=== PATIENT | female | born 1990 | race Caucasian/White ===

== ENCOUNTER 2017-10-26 01:54 | Observation (INO) | payer OTHER, MEDICAID, SELFPAY ==
[2017-10-26 01:58] VITALS: BP 119/75; PULSE 94; RESP 18; TEMP 36.6; O2SAT 100
[2017-10-26] MEDS: SODIUM CHLORIDE 0.9% 1,000 ML 150 ML IV ×2 (03:02→12:38)
--- NOTE | 2017-10-26 03:20 | DI.US.S_ITS ---
PROCEDURE: US PELVIC COMPLETE INDICATIONS: 27 year-old woman with severe right pelvic pain. TECHNIQUE: Real-time scanning was performed of the pelvic organs, with image documentation. Additional endovaginal scanning was necessary due to incomplete visualization of the adnexal and endometrial structures by transabdominal scanning. COMPARISON: None. FINDINGS: Transabdominal scanning: Limited scanning through the kidneys shows no hydronephrosis. No pathologic free abdominal or pelvic fluid. Endovaginal scanning: Uterus: Uterus is anteverted measuring 9.5 x 2.6 x 5.6 cm. The endometrium measures 5.9 mm in combined thickness. There is an IUD in the uterine cavity. Ovaries: Right ovary measures 4.8 x 3.8 x 2.8 cm. There is a complex cystic mass in the right ovary measuring 2.2 x 1.8 x 1.9 cm. A 8.5 x 5.1 x 1.9 cm irregular echogenic mass in the right adnexa demonstrates no internal vascularity. There is a moderate amount of free fluid in the cul-de-sac with low-level echo, suspicious for blood product. The left ovaries not visualized. IMPRESSION: 1. Complex, echogenic mass without vascularity in the right adnexa measuring 8.5 x 5.1 x 1.9 cm, most likely a hematoma. Differential diagnosis includes ruptured hemorrhagic cyst, ectopic , tubo-ovarian abscess and less likely ovarian neoplasm. Recommend clinical correlation and followup. 2. Moderate amount of complex free fluid in cul-de-sac. 3. No visualization of the left ovary. 4. IUD in uterus. No significant discrepancy with the night warehouse manager radiology preliminary report. Dictated by: Feliciano Aguilar M.D. on 10/26/2017 at 8:16 Approved by: Feliciano Aguilar M.D. on 10/26/2017 at 8:23
[2017-10-26 03:21] LABS: Add Manual Diff / Slide Review NO; Basophils Percent Auto 0.6 % (0-2); Hematocrit 36.8 % (36-46); Hemoglobin 12.9 g/dL (12.0-16.0); Lymphocytes Percent Auto 17.5 % (25-40); Mean Corpuscular Hemoglobin 31.7 PG (26-34); Mean Corpuscular Volume 90.3 fL (80-100); Monocytes Percent Auto 6.4 % (3-14); Neutrophils Absolute Auto 6500 /uL (3000-5900); Neutrophils Percent Auto 72.5 % (50-75); Platelet Count 220 X10^3/uL (150-400); Red Blood Cell Count 4.07 X10^6/uL (4.0-5.2); Red Cell Distribution Width 12.4 % (11.6-14.8); White Blood Cell Count 8.9 X10^3/uL (4.5-11.0)
[2017-10-26 03:29] LABS: Alanine Aminotransferase 43 IU/L (9-52); Albumin 4.2 g/dL (3.5-5.0); Albumin Globulin Ratio 1.4 (1.0-2.8); Alkaline Phosphatase 53 U/L (38-126); Aspartate Aminotransferase 32 IU/L (14-36); Bilirubin Total 0.3 mg/dL (0.2-1.3); Blood Urea Nitrogen 12 mg/dL (7-17); Calcium 9.1 mg/dL (8.4-10.2); Carbon Dioxide 27 mmol/L (22-32); Chloride 105 mmol/L (98-107); Estimated Glomerular Filt Rate > 60.0 mL/min (>60); Globulin 2.9 g/dL (1.7-4.1); Glucose 92 mg/dL (70-100); HEMOLYSIS 46 (0-50); Lipase 62 U/L (23-300); Potassium 3.8 mmol/L (3.4-5.1); Sodium 142 mmol/L (137-145); Total Protein 7.1 g/dL (6.3-8.2)
--- NOTE | 2017-10-26 04:14 | DI.CT.S_ITS ---
PROCEDURE: CT ABDOMEN PELVIS W CON INDICATIONS: severe right lower quadrant pain TECHNIQUE: After the administration of intravenous contrast, 5 mm thick sections acquired from the diaphragm to the symphysis. 5 mm coronal and sagittal reformats were acquired. For radiation dose reduction, the following was used: automated exposure control, adjustment of mA and/or kV according to patient size. COMPARISON: [facility], , US PELVIC COMPLETE, 10/26/2017, 3:43. FINDINGS: Image quality: Excellent. ABDOMEN: Lung bases: Lung bases are clear. Heart size is normal. Solid organs: Liver is normal in size and enhancement. Gallbladder is normal. Biliary system is non dilated. Pancreas enhances normally. Spleen is normal in size and enhancement. No adrenal nodules. Kidneys demonstrate normal size and enhancement, without hydronephrosis. Peritoneum and bowel: Bowel loops demonstrate normal wall thickness and caliber. The appendix is normal. No free air. There is a small amount of free of fluid in the right colic gutter. Nodes and vessels: No retroperitoneal or mesenteric adenopathy by size criteria. Aorta and inferior vena cava are normal in size. Miscellaneous: No ventral hernias. PELVIS: Genitourinary: Bladder wall thickness is normal. Uterus is prominent with an IUD. There is a complex mass in the right adnexa measuring 4.9 x 3.4 cm. There is moderate amount of free fluid in pelvis. Miscellaneous: No inguinal hernias or adenopathy. Bones: No suspicious bony lesions. No vertebral body compression fractures. IMPRESSION: 1. Normal appendix. 2. A complex mass in the right adnexa measuring 4.9 x 3.4 cm. There is a moderate amount of free fluid. Differential diagnoses include hematoma from ruptured hemorrhagic ovarian cyst, ectopic , and tubo-ovarian abscess. Ovarian neoplasm is felt less likely. 3. An IUD in the uterus. No significant discrepancy with the security shift supervisor radiology preliminary report. Dictated by: Feliciano Aguilar M.D. on 10/26/2017 at 7:52 Approved by: Feliciano Aguilar M.D. on 10/26/2017 at 8:00
--- NOTE | 2017-10-26 04:29 | ED_ITS ---
HPI - Abdominal Pain General Chief Complaint: Abdominal Pain Stated Complaint: abdominal pain x 6 hours Time Seen by Provider: 10/26/17 02:00 Source: patient Mode of arrival: ambulatory Limitations: no limitations History of Present Illness HPI narrative: 19-year-old female with history of IUD placement presents with a chief complaint of gradually worsening right lower quadrant pain over the past few days. She denies any vaginal bleeding or discharge. She is not dizzy nor weak or lightheaded. She denies any fever or chills. She has had no runny nose , sore throat or cough. She states it is much worse when she moves and improves with rest MD complaint: abdominal pain Onset (ago): day(s) Pain Consistency: constant Location: RLQ Severity: moderate Quality: cramping Radiation: none Migration to: no migration Relieving factors: rest Exacerbating factors: movement Associated symptoms: denies other symptoms Related Data Patient : No Home Medications Medication Instructions Recorded Confirmed ACETAMINOPHEN (TYLENOL) 650 mg PO PRN #0 03/05/06 VITAMIN C - 0 PO PRN #0 03/05/06 (VITAMIN C) Allergies Allergy/AdvReac Type Severity Reaction Status Date / Time No Known Drug Allergies Allergy Verified 10/26/17 01:58 Review of Systems Review of Systems All systems reviewed & are unremarkable except as noted in HPI and below Constitutional Denies chills, Denies fever(s), Denies lethargy and Denies weakness Eyes Denies change in vision, Denies eye discharge, Denies irritation and Denies loss of vision ENT Ears, Nose, Mouth, and Throat: Denies change in voice, Denies neck pain and Denies sore throat Cardiovascular Denies chest pain, Denies irregular heart rhythm, Denies lightheadedness, Denies palpitations, Denies dyspnea, Denies dyspnea on exertion and Denies orthopnea Respiratory Denies cough, Denies dyspnea, Denies dyspnea on exertion and Denies wheezing Gastrointestinal Gastrointestinal: Reports abdominal pain, Denies change in bowel habits, Denies diarrhea, Denies nausea and Denies vomiting Genitourinary Denies hematuria, Denies flank pain, Denies urinary incontinence and Denies urinary urgency Musculoskeletal Denies neck pain Integumentary/Breasts Denies pruritus, Denies erythema, Denies rash and Denies wounds Neurologic Denies confusion, Denies loss of vision and Denies weakness Psychiatric Denies anxiety, Denies confusion, Denies depression, Denies homicidal ideation and Denies suicidal ideation Endocrine Denies palpitations Hematologic/Lymphatic Denies easy bruising Allergic/Immunologic Denies wheezing [facility], [facility] Social History Smoking Status: Never smoker Exam Initial Vital Signs Initial Vital Signs: Vital Signs Temperature 97.8 F 10/26/17 01:58 Pulse Rate 94 H 10/26/17 01:58 Respiratory Rate 18 10/26/17 01:58 Blood Pressure 119/75 10/26/17 01:58 Pulse Oximetry 100 10/26/17 01:58 Const General: cooperative and well developed Nutritional Appearance: well nourished Orientation: alert, awake, oriented x3 and not confused HENMT Head: normocephalic and atraumatic Ears: external ears normal and TM's normal bilaterally Nose: external nose normal and No nasal discharge Face and sinus: sinuses nontender, face symmetric, no sinus tenderness and No dry mucous membranes Mouth: oral mucosae normal and moist mucous membranes Teeth and gingiva: dentition normal Throat: tonsils normal and uvula midline Eyes General: appearance normal, both eyes and all related structures Eyelids: eyelids normal Conjunctivae: conjunctivae normal Sclera: sclerae normal Pupils: PERRL EOM: EOM intact bilaterally Neck Neck: normal visual inspection, trachea midline, No lymphadenopathy, No midline deformity and No JVD Lymphatic: No lymphedema Chest Chest: normal inspection of the chest Resp Effort & Inspection: normal respiratory effort, able to speak in complete sentences, no respiratory distress and no use of accessory muscles Auscultation: clear to auscultation bilaterally, no rales, no rhonchi and no wheezes Cardio Rate: regular rate Rhythm: regular rhythm Heart Sounds: no click, no gallops, no murmurs and no rubs Pulses: normal peripheral pulses GI Inspection: non-distended Palpation: soft, no hepatosplenomegaly, No guarding, No pulsatile mass and tender (RLQ pain to palp with local peritonitis) Auscultation: normal bowel sounds Back/Spine/Pelvis Back: No CVA tenderness Cervical Spine: cervical ROM normal and No pain with cervical ROM Thoracic/Lumbar Spine: thoracic and lumbar spine normal to inspection Skin General: no rashes or lesions noted, No jaundice and No petechiae Neuro General: alert, oriented x3, gait normal and no focal motor deficits Speech: speech normal Extrem General: full ROM, no clubbing, cyanosis or edema, no pedal edema and no calf tenderness Psych Appearance: well kempt Mental Status: mental status grossly normal Attitude: cooperative Thought Content: normal and suicidality Judgment: judgment good Course Decision to Admit Date: 10/26/17 Decision to Admit time: 05:08 Orders Ordered: ED Orders 10/26/17 02:30 HCG Quantitative Stat 10/26/17 03:10 Complete Blood Count AUTO DIFF Stat Comprehensive Metabolic Panel Stat Lipase Stat 10/26/17 03:20 US pelvic complete Stat 10/26/17 04:14 CT abdomen pelvis w con Stat 10/26/17 05:24 Type and Screen Stat Sodium Chloride (Normal Saline 0.9%) 1,000 mls @ 150 mls/hr IV CONT OPHELIA Last Admin: 10/26/17 03:02 Dose: 150 mls/hr Reevaluation(s) Reevaluation #1: Patient developing increasing pain and tenderness on exam. She is now requesting Dilaudid. Consultations Consultation #1: Upon receipt of ultrasound a call placed to Dr. Velez who was on-call for OB. We agree that this calls most appropriately handled by Dr. Valencia, the backup assistant account manager. When he calls back we share the opinion that the patient is most appropriately kept in the hospital with pain control, trending of hematocrit, NPO status Vital Signs - 8 hr 10/26/17 01:58 Temperature 97.8 F Pulse Rate 94 H Respiratory Rate 18 Blood Pressure 119/75 Pulse Oximetry 100 MDM - Abdominal Pain Differential Diagnosis Differential diagnosis: Likely abdominal pain Lab Data Result diagrams: 10/26/17 03:10 10/26/17 03:10 Lab Results 10/26/17 10/26/17 10/26/17 Range/Units 02:30 03:10 03:10 WBC 8.9 (4.5-11.0) X10^3/uL RBC 4.07 (4.0-5.2) X10^6/uL Hgb 12.9 (12.0-16.0) g/dL Hct 36.8 (36-46) % MCV 90.3 (80-100) fL MCH 31.7 (26-34) PG MCHC 35.0 (30-36) % RDW 12.4 (11.6-14.8) % Plt Count 220 (150-400) X10^3/uL Neut % (Auto) 72.5 (50-75) % Lymph % (Auto) 17.5 L (25-40) % [place] % (Auto) 6.4 (3-14) % Eos % (Auto) 3.0 (2-4) % Baso % (Auto) 0.6 (0-2) % Neut # (Auto) 6500 H (9512-2703) /uL Sodium 142 (137-145) mmol/L Potassium 3.8 (3.4-5.1) mmol/L Chloride 105 (98-107) mmol/L Carbon Dioxide 27 (22-32) mmol/L BUN 12 (7-17) mg/dL Creatinine 0.60 (0.52-1.04) mg/dL Estimated GFR > 60.0 (>60) mL/min BUN/Creatinine Ratio 20.0 (6-22) Glucose 92 (70-100) mg/dL Calcium 9.1 (8.4-10.2) mg/dL Total Bilirubin 0.3 (0.2-1.3) mg/dL AST 32 (14-36) IU/L ALT 43 (9-52) IU/L Alkaline Phosphatase 53 (38-126) U/L Total Protein 7.1 (6.3-8.2) g/dL Albumin 4.2 (3.5-5.0) g/dL Globulin 2.9 (1.7-4.1) g/dL Albumin/Globulin Ratio 1.4 (1.0-2.8) Lipase 62 (23-300) U/L HCG, Quant < 2.39 mIU/mL Point of care testing: Point of Care Testing Test Results Negative Urine Dip Bedside Urine Glucose Negative Bedside Urine Bilirubin - Negative Bedside Urine Ketone - Negative Urine Specific Sells 1.020 Bedside Urine Occult Blood - Negative Bedside Urine pH 6.5 Bedside Urine Protein - Negative Bedside Urine Urobilinogen - Negative Bedside Urine Nitrite - Negative Bedside Urine Leukocytes - Negative Esterase Imaging Data US - abdomen: Radiologist's impression: Complex cystic structure in the right ovary likely complex or hemorrhagic cyst. Large complex right adnexal mass adjacent to the ovary most likely hematoma or blood clot with moderate complex free fluid likely hemoperitoneum. Constellation of findings most likely ruptured or hemorrhagic ovarian cyst, the differential diagnosis also includes ruptured ectopic. IUD in place. Hematoma measures 8.5 x 1.[address] scan - abdomen: Radiologist's impression: Complex mass in the right adnexa likely hematoma or blood clot adjacent to the right ovary with a small right ovarian cystic structure and moderate hemoperitoneum. Findings correlate to the ultrasound findings Discharge Plan Departure Patient Disposition: Admitted As Inpatient Clinical Impression: Corpus luteum cyst hemorrhage
[2017-10-26 04:58] LABS: HCG Quantitative /Beta subunit < 2.39 mIU/mL
[2017-10-26] MEDS: HYDROMORPHONE 1 MG INJ IV (05:49)
[2017-10-26] MEDS: ONDANSETRON 4 MG/2 ML INJ IV ×3 (05:49→16:55)
[2017-10-26 06:08] VITALS: BP 113/67; PULSE 79; RESP 18; O2SAT 98
[2017-10-26 06:25] VITALS: BP 107/62; PULSE 72; RESP 16; TEMP 36.7; O2SAT 100
[2017-10-26 06:36] VITALS: BMI 21.9
[2017-10-26 07:26] LABS: Hematocrit 34.8 % (36-46); Hemoglobin 11.8 g/dL (12.0-16.0)
[2017-10-26] MEDS: HYDROMORPHONE PCA 6 MG/30 ML PCA.VIAL IV ×2 (07:48→13:51)
[2017-10-26 07:55] VITALS: BP 115/68; PULSE 62; RESP 16; TEMP 36.8; O2SAT 93
--- NOTE | 2017-10-26 07:55 | PC.ADMIT ---
[id number] Admission Note:Pt arrived to room 228 from the ER via a wheelchair, pt able to transfer herself to the bed indep. Pt is a/o x3. GUM COOK set up per order for pain, pt having 4/10 abdominal pain mostly to the right side that radiates to med abdomen. IVF infusing. Belongings with pt. Pt oriented to room and call light and instructed to call for assist when she need to get OOB. The patient,Natalee Jorge,27 y/o, was given written information regarding hospital policies, unit procedures and contact persons. Patient's smoking status: Current some day smoker. Vital Signs - 8 hr 10/26/17 01:58 10/26/17 06:08 10/26/17 06:25 Temperature 97.8 F 98.1 F Pulse Rate 94 H 79 72 Respiratory Rate 18 18 16 Blood Pressure 119/75 113/67 107/62 Pulse Oximetry 100 98 100
--- NOTE | 2017-10-26 07:55 | PM.GYNHP.1 ---
History of Present Illness Narrative: Natalee Jorge is a 27 year old female 0 para 0 who presents with crampy lower abdominal pain and an acute onset of right lower and upper quadrant pain. Patient has had IUD for four years without difficulty. She presented to the emergency room this history and a CT scan ultrasound was obtained. I have reviewed these and a show a right corpus luteum cyst and blood in the abdomen compatible with a blood clot. The patient's symptoms are compatible with this. The patient was hemodynamically stable with hematocrit of 36 a normal white count and normal laboratory studies. She was admitted to observe for continued bleeding. [facility] Medical History IUD (intrauterine device) in place (Acute) UTI (urinary tract infection) (Acute) Social History household members: family Smoking Status: Current some day smoker alcohol intake: current Meds Home Medications Medication Instructions Recorded Confirmed Type ACETAMINOPHEN (TYLENOL) 650 mg PO PRN #0 03/05/06 10/26/17 History Allergies Allergy/AdvReac Type Severity Reaction Status Date / Time No Known Drug Allergies Allergy Verified 10/26/17 01:58 Exam Vital Signs (past 8 hours): - 10/26/17 01:58 10/26/17 06:08 10/26/17 06:25 Temperature 97.8 F 98.1 F Pulse Rate 94 H 79 72 Respiratory Rate 18 18 16 Blood Pressure 119/75 113/67 107/62 Pulse Oximetry 100 98 100 Oxygen Delivery Method Room Air Const General: cooperative and healthy appearing [facility] Head: normal to inspection Ears: hearing grossly normal bilaterally Nose: external nose normal Face and sinus: normal facial exam Mouth: oral mucosae normal, lip normal, tongue normal and moist mucous membranes Teeth and gingiva: dentition normal Throat: posterior oropharynx normal Eyes General: appearance normal, both eyes and all related structures Neck Neck: normal visual inspection and full ROM Chest Chest: normal inspection of the chest and normal palpation of entire chest wall Breast inspection: normal inspection of the breasts and normal inspection of the axillae Breast Palpation: normal palpation of the breasts and normal palpation of the axillae Resp Effort & Inspection: normal respiratory effort Auscultation: clear to auscultation bilaterally Cardio Palpation: normal PMI Rate: regular rate Rhythm: regular rhythm Heart Sounds: S1 normal and S2 normal GI Inspection: distended Palpation: soft, no hepatosplenomegaly and guarding Percussion: normal to percussion Auscultation: normal bowel sounds Other: Patient with mild distention of the abdomen but no fluid wave. Bowel sounds are excellent Back/Spine/Pelvis Thoracic/Lumbar Spine: thoracic and lumbar spine normal to inspection Skin General: no rashes or lesions noted Neuro General: alert, oriented x3, tone normal and moves all extremities Cognition: normal cognition Speech: speech normal Gait: normal gait Motor: muscle tone normal throughout Sensory Exam: no sensory deficits noted Extrem General: normal to inspection and normal exam except as noted Psych Appearance: grossly normal and well kempt Mental Status: mental status grossly normal Speech and Movement: speech and movement normal Objective Labs Result Diagrams: 10/26/17 06:50 10/26/17 03:10 Labs: Laboratory Results - last 24 hr 10/26/17 10/26/17 10/26/17 02:30 03:10 03:10 WBC 8.9 RBC 4.07 Hgb 12.9 Hct 36.8 MCV 90.3 MCH 31.7 MCHC 35.0 RDW 12.4 Plt Count 220 Neut % (Auto) 72.5 Lymph % (Auto) 17.5 L [place] % (Auto) 6.4 Eos % (Auto) 3.0 Baso % (Auto) 0.6 Neut # (Auto) 6500 H Sodium 142 Potassium 3.8 Chloride 105 Carbon Dioxide 27 BUN 12 Creatinine 0.60 Estimated GFR > 60.0 BUN/Creatinine Ratio 20.0 Glucose 92 Calcium 9.1 Total Bilirubin 0.3 AST 32 ALT 43 Alkaline Phosphatase 53 Total Protein 7.1 Albumin 4.2 Globulin 2.9 Albumin/Globulin Ratio 1.4 Lipase 62 HCG, Quant < 2.39 Blood Type Antibody Screen 10/26/17 10/26/17 05:30 06:50 WBC RBC Hgb 11.8 L Hct 34.8 L MCV MCH MCHC RDW Plt Count Neut % (Auto) Lymph % (Auto) [place] % (Auto) Eos % (Auto) Baso % (Auto) Neut # (Auto) Sodium Potassium Chloride Carbon Dioxide BUN Creatinine Estimated GFR BUN/Creatinine Ratio Glucose Calcium Total Bilirubin AST ALT Alkaline Phosphatase Total Protein Albumin Globulin Albumin/Globulin Ratio Lipase HCG, Quant Blood Type O Positive Antibody Screen Negative Assessment & Plan (1) Cyst, corpus, luteum ruptured: Problem details: Patient with ruptured corpus luteum cyst and intra-abdominal bleeding which appears to have ceased. Plan is for careful observation and continue the patient NPO status Pain relief be provided with a MANUFACTURING RECRUITER Current visit: Yes Status: Acute Plan: Assessment/Plan Narrative: Please see above Quality VTE Deep Vein Thrombosis/Pulmonary Embolism Present on Admission: No
--- NOTE | 2017-10-26 09:23 | CM.DANOTE ---
Discharge Planning/Care Management DCP: assessment: ryan received, EMR reviewed and met with pt this morning. Introduced self and role. Pt is a 27 year old female who admitted early this mornin to care of RECYCLING SPECIALIST Dr. Jack. Admitted for observation of ruptured cyst with bleeding/now appeared to have stopped, in setting of IUD use x 4 years. Pt states she has a good talk with Dr. Jack this morning and knows he will be back later today...will follow prn for any needs. Expect home when stable for same. CM Discharge Assessment Start: 10/26/17 09:12 Freq: Status: Active Protocol: Document 10/26/17 09:20 ITV (Rec: 10/26/17 09:22 ITV [id number]) Discharge Planning Assessment History Provided By Patient Medical Record Prior Living Arrangements House Independent with ADL's Yes Is patient alert and oriented? Yes Barriers to Discharge No Comment pt expects to d/c home when medically stable. Dr. Jack will return later today to see her again. Discharge Plan Home Transportation Arrangement mom will pick her up/mom lives in [place], pt lives in [place] Updated in Patient Room with Yes name and ext. # of Director Of Retention Review Status In Process Next Review Type Continued Stay Review
[2017-10-26 11:35] VITALS: BP 107/66; PULSE 58; RESP 15; TEMP 36.5; O2SAT 94
[2017-10-26 13:14] LABS: Hematocrit 32.5 % (36-46)
[2017-10-26] MEDS: OXYCODONE IR 10 MG TABLET PO ×2 (14:16→18:48)
[2017-10-26 15:50] VITALS: BP 117/62; PULSE 74; RESP 16; TEMP 36.7; O2SAT 99
--- NOTE | 2017-10-26 17:40 | P.PN_ITS ---
Subjective Date Patient Seen: 10/26/17 Time Patient Seen: 17:37 Interval history: Patient is a 27-year-old admitted because a corpus luteum cyst director. This was documented well on ultrasound. Serial hematocrits remained stable and the patient was admitted and ambulated. She was discharged home for follow-up in four weeks. Post admission instructions were given with regards to diet bathing and exercise. Exam Vital Signs (past 8 hours): - 10/26/17 11:35 10/26/17 15:50 Temperature 97.7 F 98.0 F Pulse Rate 58 L 74 Respiratory Rate 15 16 Blood Pressure 107/66 117/62 Pulse Oximetry 94 99 Oxygen Delivery Method Room Air Oxygen Flow Rate 0 Narrative Exam Narrative: Examination is confined to the abdomen. Abdomen is less distended in the past and less tender. Good bowel sounds are present. Objective Labs Result Diagrams: 10/26/17 13:00 10/26/17 03:10 Labs: Laboratory Results - last 24 hr 10/26/17 10/26/17 10/26/17 02:30 03:10 03:10 WBC 8.9 RBC 4.07 Hgb 12.9 Hct 36.8 MCV 90.3 MCH 31.7 MCHC 35.0 RDW 12.4 Plt Count 220 Neut % (Auto) 72.5 Lymph % (Auto) 17.5 L [place] % (Auto) 6.4 Eos % (Auto) 3.0 Baso % (Auto) 0.6 Neut # (Auto) 6500 H Sodium 142 Potassium 3.8 Chloride 105 Carbon Dioxide 27 BUN 12 Creatinine 0.60 Estimated GFR > 60.0 BUN/Creatinine Ratio 20.0 Glucose 92 Calcium 9.1 Total Bilirubin 0.3 AST 32 ALT 43 Alkaline Phosphatase 53 Total Protein 7.1 Albumin 4.2 Globulin 2.9 Albumin/Globulin Ratio 1.4 Lipase 62 HCG, Quant < 2.39 Blood Type Antibody Screen 10/26/17 10/26/17 10/26/17 05:30 06:50 13:00 WBC RBC Hgb 11.8 L Hct 34.8 L 32.5 L MCV MCH MCHC RDW Plt Count Neut % (Auto) Lymph % (Auto) [place] % (Auto) Eos % (Auto) Baso % (Auto) Neut # (Auto) Sodium Potassium Chloride Carbon Dioxide BUN Creatinine Estimated GFR BUN/Creatinine Ratio Glucose Calcium Total Bilirubin AST ALT Alkaline Phosphatase Total Protein Albumin Globulin Albumin/Globulin Ratio Lipase HCG, Quant Blood Type O Positive Antibody Screen Negative Assessment & Plan (1) Cyst, corpus, luteum ruptured: Problem details: Patient with ruptured corpus luteum cyst and intra-abdominal bleeding which appears to have ceased. Plan is for careful observation and continue the patient NPO status Pain relief be provided with a SHOT POLISHER AND INSPECTOR Current visit: Yes Status: Acute (2) Corpus luteum cyst hemorrhage: Problem details: Patient observed and followed with no evidence of continued bleeding Current visit: Yes Status: Acute Plan: Assessment/Plan Narrative: Discharge to home Oxycodone Zofran Follow-up one week Quality VTE Deep Vein Thrombosis/Pulmonary Embolism Present on Admission: No
== END 2017-10-26 19:20 | disposition home or self-care (01) ==
LOC: ED 05:41 → AC 09:46
PROVIDERS: Emergency Provider Emergency Medicine
DX: N83.11 Corpus luteum cyst of right ovary (principal); R10.31 Right lower quadrant pain; F17.210 Nicotine dependence, cigarettes, uncomplicated
CPT/HCPCS: 36415; 36591; 74177; 76830; 76856; 80053; 81003; 81025; 83690; 84702; 85014; 85018; 85025; 86850; 86900; 86901; 96374; 96375; 96376; 99283; 99285; G0378; J1170; J2405; Q9967

== ENCOUNTER 2017-10-30 11:50 | Emergency (ER) | payer OTHER, MEDICAID, SELFPAY ==
[2017-10-30] VITALS (7 sets, daily range): BP systolic 107–120; BP diastolic 57–73; PULSE 66–84; RESP 11–18; TEMP 36.3–37.1; O2SAT 99–100
--- NOTE | 2017-10-30 12:04 | ED.ABDPAIN ---
HPI - Abdominal Pain <RIMA Joiner - Last Filed: 10/30/17 21:36> General Chief Complaint: Chest Pain Stated Complaint: ABDOMINAL AND CHEST PAIN Time Seen by Provider: 10/30/17 12:01 Source: patient Mode of arrival: ambulatory Limitations: no limitations History of Present Illness HPI narrative: 27-year-old female history of a ruptured hemorrhagic ovarian cyst and part-time smoker here for complaint of abdominal pain and chest pain. She was recently admitted due to hemorrhagic cyst for pain control and was discharged 3 days ago. She reports she has continued abdominal pain to the pelvic region. She also complains of having right upper quadrant pain with pain to the chest area on deep inspiration. She denies any vaginal discharge or bleeding. She reports that the pain to the pelvic region is the same as when she was discharged. She does report increased pain into the right upper quadrant and chest pain that started 2 days ago. No nausea or vomiting. Last bowel movement was earlier today. She is currently using oxycodone for pain and states that she did have a bowel movement earlier today however she had use laxatives due to the pain medication. She denies any relievers of the abdominal pain. She does state she has positive p.o. intake. She denies any urinary symptoms. No flank pain. She currently has IUD in place. Related Data Previous Rx's Medication Instructions Recorded ondansetron HCl (PF) 4 mg IV Q4HR PRN #20 ml 10/26/17 oxycodone 10 mg PO Q4H PRN #30 tab 10/26/17 Allergies Allergy/AdvReac Type Severity Reaction Status Date / Time No Known Drug Allergies Allergy Verified 10/26/17 01:58 Review of Systems <RIMA Joiner - Last Filed: 10/30/17 21:36> Constitutional Denies chills, Denies fatigue, Denies fever(s), Denies lethargy and Denies weakness Eyes Denies change in vision, Denies eye discharge, Denies irritation and Denies loss of vision ENT Ears, Nose, Mouth, and Throat: Denies change in voice, Denies neck pain and Denies sore throat Cardiovascular Reports chest pain, Denies dyspnea and Denies dyspnea on exertion Respiratory Denies cough, Denies dyspnea, Denies dyspnea on exertion and Denies wheezing Gastrointestinal Gastrointestinal: Reports abdominal pain, Denies change in bowel habits, Denies diarrhea, Denies nausea and Denies vomiting Genitourinary Reports pelvic pain Musculoskeletal Denies neck pain Integumentary/Breasts Denies pruritus, Denies erythema, Denies rash and Denies wounds Neurologic Denies confusion, Denies loss of vision and Denies weakness Psychiatric Denies anxiety, Denies confusion, Denies depression, Denies homicidal ideation and Denies suicidal ideation Endocrine Denies fatigue and Denies flushing Hematologic/Lymphatic Denies easy bruising Allergic/Immunologic Denies wheezing Exam <RIMA Joiner - Last Filed: 10/30/17 21:36> Initial Vital Signs Initial Vital Signs: Vital Signs Temperature 97.3 F L 10/30/17 12:00 Pulse Rate 84 10/30/17 12:00 Respiratory Rate 18 10/30/17 12:00 Blood Pressure 120/70 10/30/17 12:00 Pulse Oximetry 100 10/30/17 12:00 Const General: cooperative and well developed Nutritional Appearance: well nourished Orientation: alert, awake, oriented x3 and not confused [facility] Mouth: oral mucosae normal, oropharynx normal and moist mucous membranes Eyes Conjunctivae: conjunctivae normal Sclera: sclerae normal Pupils: PERRL EOM: EOM intact bilaterally Chest Chest: normal inspection of the chest Resp Effort & Inspection: normal respiratory effort, able to speak in complete sentences, no respiratory distress and no use of accessory muscles Auscultation: clear to auscultation bilaterally, no rales, no rhonchi and no wheezes Cardio Rate: regular rate Rhythm: regular rhythm Heart Sounds: no click, no gallops, no murmurs and no rubs GI Inspection: non-distended Palpation: soft, no hepatosplenomegaly, No guarding, No pulsatile mass and tender (Generalized abdominal tenderness however greater to the right lower quadrant and right upper quadrant) Auscultation: normal bowel sounds Skin General: no rashes or lesions noted, No jaundice and No petechiae Neuro General: alert, oriented x3, gait normal and no focal motor deficits Speech: speech normal <[place] DO - Last Filed: 10/31/17 06:46> Initial Vital Signs Initial Vital Signs: Vital Signs Temperature 97.3 F L 10/30/17 12:00 Pulse Rate 84 10/30/17 12:00 Respiratory Rate 18 10/30/17 12:00 Blood Pressure 120/70 10/30/17 12:00 Pulse Oximetry 100 10/30/17 12:00 Scores <RIMA Joiner - Last Filed: 10/30/17 21:36> PERC Score Age greater than or equal to 50 years: No Heart rate greater than or equal to 100 bpm: No Room Air O2 Sat less than 95%: No Unilateral leg swelling: No Recent trauma or surgery: No Hemoptysis: No Prior PE or DVT: No Hormone Use: Yes Total PERC Score: 1 Course <RIMA Joiner - Last Filed: 10/30/17 21:36> Orders Ordered: Discontinued Medications Hydromorphone HCl (Dilaudid) 1 mg IV Q15M OPHELIA Stop: 10/30/17 12:46 Last Admin: 10/30/17 15:40 Dose: 1 mg Admin: 10/30/17 13:27 Dose: 1 mg Sodium Chloride (Normal Saline 0.9%) 1,000 mls @ 1,000 mls/hr IV BOLUS ONE Stop: 10/30/17 13:24 Last Infusion: 10/30/17 15:05 Dose: 0 mls/hr Admin: 10/30/17 13:27 Dose: 1,000 mls/hr Ondansetron HCl (Zofran) 4 mg IV NOW ONE Stop: 10/30/17 12:26 Last Admin: 10/30/17 13:27 Dose: 4 mg Vital Signs - 8 hr 10/30/17 14:00 10/30/17 15:00 10/30/17 16:00 Temperature Pulse Rate 69 76 66 Respiratory Rate 17 13 16 Blood Pressure Blood Pressure [Right Arm] 118/57 L 120/66 117/64 Pulse Oximetry 100 100 99 10/30/17 16:29 Temperature 98.3 F Pulse Rate 71 Respiratory Rate 15 Blood Pressure 117/64 Blood Pressure [Right Arm] Pulse Oximetry 99 <Sea Comer DO - Last Filed: 10/31/17 06:46> Orders Ordered: Discontinued Medications Hydromorphone HCl (Dilaudid) 1 mg IV Q15M OPHELIA Stop: 10/30/17 12:46 Last Admin: 10/30/17 15:40 Dose: 1 mg Admin: 10/30/17 13:27 Dose: 1 mg Sodium Chloride (Normal Saline 0.9%) 1,000 mls @ 1,000 mls/hr IV BOLUS ONE Stop: 10/30/17 13:24 Last Infusion: 10/30/17 15:05 Dose: 0 mls/hr Admin: 10/30/17 13:27 Dose: 1,000 mls/hr Ondansetron HCl (Zofran) 4 mg IV NOW ONE Stop: 10/30/17 12:26 Last Admin: 10/30/17 13:27 Dose: 4 mg Vital Signs - 8 hr 10/30/17 14:00 10/30/17 15:00 10/30/17 16:00 Temperature Pulse Rate 69 76 66 Respiratory Rate 17 13 16 Blood Pressure Blood Pressure [Right Arm] 118/57 L 120/66 117/64 Pulse Oximetry 100 100 99 10/30/17 16:29 Temperature 98.3 F Pulse Rate 71 Respiratory Rate 15 Blood Pressure 117/64 Blood Pressure [Right Arm] Pulse Oximetry 99 MDM - Abdominal Pain <RIMA Joiner - Last Filed: 10/30/17 21:36> Differential Diagnosis Differential diagnosis: Likely abdominal pain and constipation Lab Data Result diagrams: 10/30/17 13:00 10/30/17 13:00 Lab Results 10/30/17 10/30/17 10/30/17 Range/Units 13:00 13:00 13:00 WBC 4.2 L (4.5-11.0) X10^3/uL RBC 3.84 L (4.0-5.2) X10^6/uL Hgb 12.1 (12.0-16.0) g/dL Hct 34.7 L (36-46) % MCV 90.2 (80-100) fL MCH 31.6 (26-34) PG MCHC 35.0 (30-36) % RDW 12.4 (11.6-14.8) % Plt Count 181 (150-400) X10^3/uL Neut % (Auto) Not Reportable Lymph % (Auto) Not Reportable [place] % (Auto) Not Reportable Eos % (Auto) Not Reportable Baso % (Auto) Not Reportable Total Counted 100 Seg Neutrophils % 66.0 (38-70) % Lymphocytes % (Manual) 18.0 L (25-45) % Monocytes % (Manual) 16.0 H (2-11) % Eosinophils % (Manual) 8.0 H (2-4) % Basophils % (Manual) 2.0 H (0-1) % Neutrophils # (Manual) 2772 L (4680-3993) /uL RBC Morphology Normal morphology D-Dimer 645 H (<230) ng/mL Sodium 145 (137-145) mmol/L Potassium 4.0 (3.4-5.1) mmol/L Chloride 103 (98-107) mmol/L Carbon Dioxide 32 (22-32) mmol/L BUN 8 (7-17) mg/dL Creatinine 0.70 (0.52-1.04) mg/dL Estimated GFR > 60.0 (>60) mL/min BUN/Creatinine Ratio 11.4 (6-22) Glucose 96 (70-100) mg/dL Calcium 9.5 (8.4-10.2) mg/dL Total Bilirubin 0.8 (0.2-1.3) mg/dL AST 39 H (14-36) IU/L ALT 34 (9-52) IU/L Alkaline Phosphatase 46 (38-126) U/L Total Creatine Kinase 48 (30-135) U/L Troponin I < 0.012 (0.01-0.034) ng/mL Total Protein 7.8 (6.3-8.2) g/dL Albumin 4.5 (3.5-5.0) g/dL Globulin 3.3 (1.7-4.1) g/dL Albumin/Globulin Ratio 1.4 (1.0-2.8) Lipase 36 (23-300) U/L Point of care testing: Point of Care Testing Test Results Negative Urine Dip Bedside Urine Glucose Negative Bedside Urine Bilirubin - Negative Bedside Urine Ketone - Negative Urine Specific [place] 1.010 Bedside Urine Occult Blood - Negative Bedside Urine pH 7.0 Bedside Urine Protein - Negative Bedside Urine Urobilinogen - Negative Bedside Urine Nitrite - Negative Bedside Urine Leukocytes - Negative Esterase MDM Narrative Medical decision making narrative: Ultrasound of the abdomen and pelvis was obtained and shows area of free fluid to a area of the right ovary consistent with a hemorrhagic cyst. Ultrasound also shows some free fluid to the left upper quadrant area and believes due to the hemorrhagic cyst. Acute abdominal series was obtained and shows mild constipation no other acute findings. D-dimer was obtained and was elevated at 645 CT PE protocol of the chest was obtained was negative for any acute findings. EKG can cardiac enzymes were obtained were unremarkable. CBC was unremarkable. Chem panel was unremarkable. Lipase was negative. Urine POC was negative for and urinary tract infection. Patient has follow-up appointment with warble saw operator this week. He is currently prescribed pain management regimen as needed for any discomfort. Plenty of fluids. Stool softeners as directed to help with constipation. For any worsening symptoms return to the emergency room. <Sea [place]er, DO - Last Filed: 10/31/17 06:46> Lab Data Lab Results 10/30/17 10/30/17 10/30/17 Range/Units 13:00 13:00 13:00 WBC 4.2 L (4.5-11.0) X10^3/uL RBC 3.84 L (4.0-5.2) X10^6/uL Hgb 12.1 (12.0-16.0) g/dL Hct 34.7 L (36-46) % MCV 90.2 (80-100) fL MCH 31.6 (26-34) PG MCHC 35.0 (30-36) % RDW 12.4 (11.6-14.8) % Plt Count 181 (150-400) X10^3/uL Neut % (Auto) Not Reportable Lymph % (Auto) Not Reportable [place] % (Auto) Not Reportable Eos % (Auto) Not Reportable Baso % (Auto) Not Reportable Total Counted 100 Seg Neutrophils % 66.0 (38-70) % Lymphocytes % (Manual) 18.0 L (25-45) % Monocytes % (Manual) 16.0 H (2-11) % Eosinophils % (Manual) 8.0 H (2-4) % Basophils % (Manual) 2.0 H (0-1) % Neutrophils # (Manual) 2772 L (3205-5676) /uL RBC Morphology Normal morphology D-Dimer 645 H (<230) ng/mL Sodium 145 (137-145) mmol/L Potassium 4.0 (3.4-5.1) mmol/L Chloride 103 (98-107) mmol/L Carbon Dioxide 32 (22-32) mmol/L BUN 8 (7-17) mg/dL Creatinine 0.70 (0.52-1.04) mg/dL Estimated GFR > 60.0 (>60) mL/min BUN/Creatinine Ratio 11.4 (6-22) Glucose 96 (70-100) mg/dL Calcium 9.5 (8.4-10.2) mg/dL Total Bilirubin 0.8 (0.2-1.3) mg/dL AST 39 H (14-36) IU/L ALT 34 (9-52) IU/L Alkaline Phosphatase 46 (38-126) U/L Total Creatine Kinase 48 (30-135) U/L Troponin I < 0.012 (0.01-0.034) ng/mL Total Protein 7.8 (6.3-8.2) g/dL Albumin 4.5 (3.5-5.0) g/dL Globulin 3.3 (1.7-4.1) g/dL Albumin/Globulin Ratio 1.4 (1.0-2.8) Lipase 36 (23-300) U/L Point of care testing: Point of Care Testing Test Results Negative Urine Dip Bedside Urine Glucose Negative Bedside Urine Bilirubin - Negative Bedside Urine Ketone - Negative Urine Specific [place] 1.010 Bedside Urine Occult Blood - Negative Bedside Urine pH 7.0 Bedside Urine Protein - Negative Bedside Urine Urobilinogen - Negative Bedside Urine Nitrite - Negative Bedside Urine Leukocytes - Negative Esterase Discharge Plan Departure Patient Disposition: Home Clinical Impression: Ovarian cyst Discharge Date/Time: 10/30/17 16:31 Interventions: ED Discharge Assessment Last Done: 10/30/17 16:29 Instructions: DI for Ovarian Cyst Activity Restrictions/Additional Instructions: Laboratory results were unremarkable. Imaging today shows mild constipation. Imaging today also shows some fluid to the area of the right ovary consistent with hemorrhagic ovarian cyst with some free fluid in the abdominal area that is most likely causing your discomfort. Use stool softeners as directed to help with constipation. Pain management regimen as needed for any discomfort. Follow up with warble saw operator this week. For any worsening symptoms return to the emergency room. Prescriptions: No Action ondansetron HCl (PF) 4 mg/2 mL Solution 4 mg IV Q4HR PRN (Reason: Nausea And Vomiting) Qty: 20 RF: 0 oxycodone 10 mg Tablet 10 mg PO Q4H PRN (Reason: Pain, Moderate (4-6)) Qty: 30 RF: 0 Referrals: [place] MD [Non-Staff] - <Sea Comer DO - Last Filed: 10/31/17 06:46> Cosign ED Attending Marely Attestation: I was available for consultation during this patient's emergency department encounter
--- NOTE | 2017-10-30 12:25 | DI.RAD.S_ITS ---
PROCEDURE: XR ACUTE ABDOMEN SERIES INDICATIONS: Abdominal pain with chest pain TECHNIQUE: One view chest and two views of the abdomen were acquired. COMPARISON: None. FINDINGS: Surgical changes and devices: Intrauterine device is noted in its expected location. Chest: Lungs are clear. Heart size is normal. No pleural effusions. No pneumoperitoneum. Abdomen: Bowel gas pattern is normal. No suspicious calcifications. Visualized solid organ contours appear normal. Mild fecal stasis throughout the colon is seen. Bones: No suspicious bony lesions. IMPRESSION: Mild constipation. No evidence of bowel obstruction no gross free air. Dictated by: Romaine La M.D. on 10/30/2017 at 14:24 Approved by: Romaine La M.D. on 10/30/2017 at 14:25
--- NOTE | 2017-10-30 12:25 | DI.US.S_ITS ---
PROCEDURE: US ABDOMEN COMPLETE INDICATIONS: Continued abdominal pain TECHNIQUE: Real-time scanning was performed of the abdominal and retroperitoneal organs, with image documentation. COMPARISON: None. FINDINGS: Liver: Liver is normal in size and homogeneous in echotexture. Gallbladder: There is no gallstone. No gallbladder wall thickening or pericholecystic fluid. No sonographic Duckworth's sign. Biliary ducts: Intrahepatic bile ducts are non-dilated. Extrahepatic bile duct caliber measures 4 mm. Normal is 6-7 mm or less in diameter, or 10 mm or less post-cholecystectomy. Pancreas: Visualized portions of the pancreas are sonographically normal. Spleen: Spleen is normal in size and homogeneous in echotexture. Kidneys: Kidneys are normal in size and echotexture. Right kidney measures 11 cm long; left kidney measures 11.7 cm long. No hydronephrosis or nephrolithiasis. No solid masses. Aorta: Visualized aorta is normal in caliber at less than 3 cm. Iliacs: Proximal common iliac arteries are normal in caliber at less than 2.5 cm. IVC: Intrahepatic inferior vena cava is patent. Miscellaneous: Trace amount of free fluid is noted in left upper quadrant adjacent to the spleen. IMPRESSION: Trace amount of free fluid in left upper abdomen adjacent to the spleen. Rest of exam is unremarkable. Dictated by: Romaine La M.D. on 10/30/2017 at 14:08 Approved by: Romaine La M.D. on 10/30/2017 at 14:10
--- NOTE | 2017-10-30 12:25 | DI.US.S_ITS ---
PROCEDURE: US PELVIC COMPLETE INDICATIONS: Continued abdominal/pelvic pain TECHNIQUE: Real-time scanning was performed of the pelvic organs, with image documentation. Additional endovaginal scanning was necessary due to incomplete visualization of the adnexal and endometrial structures by transabdominal scanning. COMPARISON: [facility], , US PELVIC COMPLETE, 10/26/2017, 3:43. FINDINGS: Transabdominal scanning: Limited scanning through the kidneys shows no hydronephrosis. No pathologic free abdominal or pelvic fluid. Endovaginal scanning: Uterus: Uterus is normal in size at 7.7 x 3.5 x 5.3 cm. The endometrium measures 4 mm in combined thickness. Intrauterine device is noted in its normal central location. No endometrial mass or fluid is seen. Ovaries: Right ovary measures 4.2 x 3.1 x 4.5 cm in size. Left ovary is not visualized on this study. No gross adnexal mass is seen. A 2.0 x 1.4 x 2.8 cm cyst with lobulated contour is noted in right ovary with internal low-level echo. Moderate amount of free fluid is noted in pelvis and bilateral adnexa. IMPRESSION: 1 Findings suggestive of a ruptured right ovarian cyst with a moderate amount of free fluid in the pelvis and bilateral adnexa. No solid-appearing ovarian lesion. No evidence of right ovarian torsion. Left ovary is not visualized on this study. 2. Intrauterine device is in its normal central location. No endometrial mass or fluid. Dictated by: Romaine La M.D. on 10/30/2017 at 14:10 Approved by: Romaine La M.D. on 10/30/2017 at 14:14
[2017-10-30] MEDS: HYDROMORPHONE 1 MG INJ IV ×2 (13:27→15:40)
[2017-10-30] MEDS: ONDANSETRON 4 MG/2 ML INJ IV (13:27)
[2017-10-30] MEDS: SODIUM CHLORIDE 0.9% 1,000 ML 1000 ML IV (13:27)
[2017-10-30 13:29] LABS: D Dimer 645 ng/mL (<230)
[2017-10-30 13:48] LABS: Alanine Aminotransferase 34 IU/L (9-52); Albumin 4.5 g/dL (3.5-5.0); Albumin Globulin Ratio 1.4 (1.0-2.8); Alkaline Phosphatase 46 U/L (38-126); Aspartate Aminotransferase 39 IU/L (14-36); BUN Creatinine Ratio 11.4 (6-22); Bilirubin Total 0.8 mg/dL (0.2-1.3); Blood Urea Nitrogen 8 mg/dL (7-17); Calcium 9.5 mg/dL (8.4-10.2); Carbon Dioxide 32 mmol/L (22-32); Chloride 103 mmol/L (98-107); Creatine Kinase 48 U/L (30-135); Estimated Glomerular Filt Rate > 60.0 mL/min (>60); Globulin 3.3 g/dL (1.7-4.1); Glucose 96 mg/dL (70-100); HEMOLYSIS 21 (0-50); Lipase 36 U/L (23-300); Sodium 145 mmol/L (137-145); Total Protein 7.8 g/dL (6.3-8.2)
[2017-10-30 13:59] LABS: Troponin I < 0.012 ng/mL (0.01-0.034)
[2017-10-30 14:05] LABS: Hematocrit 34.7 % (36-46); Hemoglobin 12.1 g/dL (12.0-16.0); Mean Corpuscular Hemoglobin 31.6 PG (26-34); Mean Corpuscular Volume 90.2 fL (80-100); Platelet Count 181 X10^3/uL (150-400); Red Blood Cell Count 3.84 X10^6/uL (4.0-5.2); Red Cell Distribution Width 12.4 % (11.6-14.8); White Blood Cell Count 4.2 X10^3/uL (4.5-11.0)
[2017-10-30 14:08] LABS: Add Manual Diff / Slide Review YES
--- NOTE | 2017-10-30 14:20 | DI.CT.S_ITS ---
PROCEDURE: CT ANGIO CHEST PE PROTOCOL INDICATIONS: Chest pain with inspiration, elevated D-dimer TECHNIQUE: After the administration of intravenous contrast, 2 mm thick sections acquired from the pulmonary apices to the posterior costophrenic angles. 3-dimensional maximum intensity projection (MIP) coronal and sagittal reformats were then acquired through the thorax. For radiation dose reduction, the following was used: automated exposure control, adjustment of mA and/or kV according to patient size. COMPARISON: None. FINDINGS: Image quality: Excellent. Pulmonary arteries: Pulmonary arteries are normal in size, and demonstrate no intraluminal filling defects to suggest central pulmonary embolism. Lungs and pleura: Lungs are clear. No pleural effusions or pneumothorax. Central and peripheral airways are patent. Mediastinum: Heart size is normal, without pericardial effusion. No mediastinal or hilar adenopathy. Thoracic aorta is normal in caliber and enhancement. Esophagus is normal in caliber. There is a small hiatal hernia. Bones and chest wall: No suspicious bony lesions. Ribs and thoracic spine appear intact throughout. Thyroid gland is within normal limits. No axillary or supraclavicular adenopathy. Abdomen: Visualized upper abdominal solid organs appear normal in the early arterial phase of enhancement. IMPRESSION: 1. No evidence of pulmonary emboli. No thoracic aortic aneurysm or gross dissection. 2. Bilateral lungs are clear. Dictated by: Romaine La M.D. on 10/30/2017 at 15:15 Approved by: Romaine La M.D. on 10/30/2017 at 15:20
[2017-10-30 14:48] LABS: Neutrophils Absolute Manual 2772 /uL (3000-5900); RBC Morphology Normal Morphology; Total Cells Counted 100
== END 2017-10-30 16:31 | disposition home or self-care (01) ==
PROVIDERS: Emergency Provider Nurse Practitioner Family
DX: N83.201 Unspecified ovarian cyst, right side (principal)
CPT/HCPCS: 36591; 71275; 74022; 76700; 76830; 76856; 80053; 81003; 81025; 82550; 82553; 83690; 84484; 85025; 85379; 93005; 93010; 96361; 96374; 96375; 99283; 99285; J1170; J2405; Q9967

== ENCOUNTER → 2019-09-29 11:47 | Outpatient (CLI) | payer OTHER, SELFPAY ==
[2019-09-29 11:54] LABS: Bacteria Urine None Seen; RBC Urine None Seen (0-5/HPF)
[2019-09-29 13:10] LABS: Appearance Urine UA CLEAR; Bilirubin Urine UA NEGATIVE (NEGATIVE); Color Urine UA YELLOW; Glucose Urine UA NEGATIVE (Negative); Ketones Urine UA NEGATIVE (NEGATIVE); Leukocyte Esterase Urine UA TRACE (NEGATIVE); Nitrite Urine UA NEGATIVE (Negative); Occult Blood Urine UA NEGATIVE (Negative); Protein Urine UA NEGATIVE (Negative)
[2019-09-29 13:17] LABS: Culture Indicated Urine Cult Not Indicated; Squamous Epithelial Cell Urine 5-10 /HPF (0-5/HPF); WBC Urine 1-5/HPF (0-5/HPF)
== END ==
DX: R39.9 Unspecified symptoms and signs involving the genitourinary system (principal)
CPT/HCPCS: 81001

== ENCOUNTER → 2020-08-12 08:22 | Outpatient (CLI) | payer OTHER, SELFPAY ==
[2019-10-02 10:48] VITALS: BMI 21.9
[2020-08-12 09:00] LABS: Bacteria Urine None Seen; RBC Urine None Seen (0-5/HPF); WBC Urine None Seen (0-5/HPF)
[2020-08-12 09:49] LABS: Appearance Urine UA CLEAR; Bilirubin Urine UA NEGATIVE (NEGATIVE); Color Urine UA YELLOW; Glucose Urine UA NEGATIVE (Negative); Ketones Urine UA NEGATIVE (NEGATIVE); Leukocyte Esterase Urine UA NEGATIVE (NEGATIVE); Nitrite Urine UA NEGATIVE (Negative); Occult Blood Urine UA NEGATIVE (Negative); Protein Urine UA NEGATIVE (Negative); Specific Gravity Urine UA <=1.005 (1.000-1.035); Urobilinogen Urine UA 0.2 E.U./dL (0.2)
[2020-08-12 10:11] LABS: pH Urine UA 6.5 (4.5-8.0)
[2020-08-12 10:12] LABS: Culture Indicated Urine Cult Not Indicated; Urine Comments Microscopic Normal
[2020-08-12 10:19] LABS: HCG Quantitative /Beta subunit < 2.4 mIU/mL
== END ==
PROVIDERS: PCP Obstetrics & Gynecology; Referring Provider Obstetrics & Gynecology; Visit Provider Obstetrics & Gynecology
DX: N92.6 Irregular menstruation, unspecified (principal); R10.9 Unspecified abdominal pain; Z87.42 Personal history of other diseases of the female genital tract
CPT/HCPCS: 36415; 81001; 84702

== ENCOUNTER → 2020-08-13 12:50 | Outpatient (CLI) | payer OTHER, SELFPAY ==
[2019-10-02 10:48] VITALS: BMI 21.9
--- NOTE | 2020-08-13 12:51 | DI.US.S_ITS ---
PROCEDURE: US PELVIC COMPLETE INDICATIONS: RIGHT PELVIC PAIN. HISTORY OF RUPTURED CYST. TECHNIQUE: Real-time scanning was performed of the pelvic organs, with image documentation. Additional endovaginal scanning was necessary due to incomplete visualization of the adnexal and endometrial structures by transabdominal scanning. COMPARISON: [facility], [place], US PELVIC COMPLETE, 10/26/2017, 3:43. [facility], [place], US PELVIC COMPLETE, 12/03/2017, 12:07. [facility], [place], US PELVIC COMPLETE, 10/30/2017, 13:19. FINDINGS: Uterus: Uterus is anteverted measuring 8.5 x 4.6 x 3.8 cm. The endometrium measures 2.3 mm in combined thickness. Ovaries: Ovaries are normal in size and echotexture. Right ovary measures 3.3 x 2.5 x 2.4 cm. Left ovary measures 4.9 x 1.9 x 1.8 cm. Normal appearing ovarian follicles are noted bilaterally. Other: No pathologic free abdominal or pelvic fluid. IMPRESSION: 1. Normal pelvic ultrasound. 2. If clinical symptoms persist, CT is suggested for follow-up. Dictated by: Feliciano Aguilar M.D. on 08/13/2020 at 17:01 Approved by: Feliciano Aguilar M.D. on 08/13/2020 at 17:07
== END ==
PROVIDERS: PCP Obstetrics & Gynecology; Referring Provider Obstetrics & Gynecology; Visit Provider Obstetrics & Gynecology
DX: N92.6 Irregular menstruation, unspecified (principal); R10.2 Pelvic and perineal pain; R10.9 Unspecified abdominal pain; Z87.42 Personal history of other diseases of the female genital tract
CPT/HCPCS: 76830; 76856

== ENCOUNTER → 2021-08-28 13:43 | Outpatient (CLI) | payer OTHER, SELFPAY ==
[2019-10-02 10:48] VITALS: BMI 21.9
[2021-08-28 13:59] LABS: Add Manual Diff / Slide Review NO; Basophils Absolute Auto 100 /uL (0-100); Basophils Percent Auto 0.6 % (0-2); Eosinophils Absolute Auto 100 /uL (0-450); Eosinophils Percent Auto 0.8 % (2-4); Hematocrit 38.4 % (36-46); Hemoglobin 13.2 g/dL (12.0-16.0); Lymphocytes Absolute Auto 1800 /uL (1100-4500); Lymphocytes Percent Auto 20.7 % (25-40); Mean Corpuscular HGB Conc 34.3 % (30-36); Mean Corpuscular Hemoglobin 31.2 PG (26-34); Mean Corpuscular Volume 90.8 fL (80-100); Monocytes Absolute Auto 500 /uL (0-900); Monocytes Percent Auto 5.7 % (3-14); Neutrophils Absolute Auto 6300 /uL (1500-7000); Neutrophils Percent Auto 72.2 % (50-75); Platelet Count 243 X10^3/uL (150-400); Red Blood Cell Count 4.22 X10^6/uL (4.0-5.2); Red Cell Distribution Width 13.1 % (11.6-14.8); White Blood Cell Count 8.7 X10^3/uL (4.5-11.0)
[2021-08-28 15:36] LABS: HEMOLYSIS < 15 (0-50)
[2021-08-28 15:38] LABS: HEMOLYSIS < 15 (0-50)
[2021-08-28 15:41] LABS: Iron 196 ug/dL (37-170)
[2021-08-28 15:43] LABS: Alanine Aminotransferase 16 IU/L (<35); Albumin Globulin Ratio 1.5 (1.0-2.8); Alkaline Phosphatase 68 U/L (38-126); Aspartate Aminotransferase 27 IU/L (14-36); BUN Creatinine Ratio 17.9 (6-22); Blood Urea Nitrogen 14 mg/dL (7-17); Calcium 9.3 mg/dL (8.4-10.2); Carbon Dioxide 29 mmol/L (22-32); Chloride 104 mmol/L (98-107); Estimated Glomerular Filt Rate > 60 mL/min (>60); Globulin 3.4 g/dL (1.7-4.1); Glucose 93 mg/dL (70-100); Potassium 4.1 mmol/L (3.4-5.1); Sodium 141 mmol/L (137-145); Total Protein 8.4 g/dL (6.3-8.2)
[2021-08-28 15:54] LABS: Percent Iron Saturation 60 % (15-50); Total Iron Binding Capacity 329 ug/dL (265-497); Transferrin 261 mg/dL (206-381)
[2021-08-28 16:44] LABS: TSH w/ Reflex to FT4 1.39 uIU/mL (0.47-4.68)
[2021-08-29 03:43] LABS: Vitamin B12 329 pg/mL (239-931)
== END ==
PROVIDERS: Referring Provider Family Medicine; Visit Provider Family Medicine
DX: D64.9 Anemia, unspecified (principal)
CPT/HCPCS: 36415; 80053; 82607; 83540; 83550; 84443; 85025

== ENCOUNTER → 2023-07-05 14:48 | Outpatient (CLI) | payer OTHER, SELFPAY ==
[2019-10-02 10:48] VITALS: BMI 21.9
--- NOTE | 2023-07-05 14:50 | DI.RAD.S_ITS ---
PROCEDURE: XR SHOULDER LT MIN 2V INDICATIONS: L shoulder pain TECHNIQUE: 3 views of the shoulder were acquired. COMPARISON: None. FINDINGS: Bones: No fractures or dislocations. No suspicious bony lesions. Visualized ribs appear intact. Minimal degenerative changes of the left acromioclavicular joint. Coracoclavicular and acromioclavicular intervals are maintained. Soft tissues: No suspicious soft tissue calcifications. IMPRESSION: Left shoulder without acute osseous abnormalities. Minimal degenerative changes of the left acromioclavicular joint. Dictated by: Denilson Taylor M.D. on 07/05/2023 at 16:44 Approved by: Denilson Taylor M.D. on 07/05/2023 at 16:45
--- NOTE | 2023-07-05 14:50 | DI.RAD.S_ITS ---
PROCEDURE: XR LUMBAR SPINE 2-3V INDICATIONS: Low back pain TECHNIQUE: 3 views of the lumbar spine were acquired. COMPARISON: None. FINDINGS: Bones: 5 [id number] vertebrae are present. There is normal bony alignment. No acute vertebral body compression fractures. No suspicious bony lesions. Soft tissues: Overlying bowel gas pattern is normal. No suspicious soft tissue calcifications. IMPRESSION: Lumbar spine without acute osseous abnormalities. No significant spondylitic changes identified. Dictated by: Denilson Taylor M.D. on 07/05/2023 at 16:38 Approved by: Denilson Taylor M.D. on 07/05/2023 at 16:39
== END ==
PROVIDERS: PCP Family Medicine; Referring Provider Family Medicine; Visit Provider Family Medicine
DX: M25.512 Pain in left shoulder (principal); M54.50 Low back pain, unspecified
CPT/HCPCS: 72100; 73030

== ENCOUNTER → 2023-07-16 12:10 | Outpatient (CLI) | payer OTHER, SELFPAY ==
[2019-10-02 10:48] VITALS: BMI 21.9
[2023-07-16 18:08] LABS: HIV 1 & 2 Ab/Ag 4th Gen Combo NEGATIVE (NEGATIVE); Hep C Virus Ab w/Reflex Quant NEGATIVE s/c (NEGATIVE)
== END ==
PROVIDERS: PCP Family Medicine; Referring Provider Obstetrics & Gynecology; Visit Provider Obstetrics & Gynecology
DX: Z11.3 Encounter for screening for infections with a predominantly sexual mode of transmission (principal)
CPT/HCPCS: 36415; 86592; 86803; 87389

== ENCOUNTER → 2025-02-07 16:49 | Outpatient (CLI) | payer OTHER, SELFPAY ==
[2025-02-06 15:23] VITALS: BMI 21.9
[2025-02-07 17:28] LABS: Add Manual Diff / Slide Review NO; Hematocrit 36.7 % (36-46); Hemoglobin 12.6 g/dL (12.0-16.0); Lymphocytes Absolute Auto 1900 /uL (1100-4500); Mean Corpuscular HGB Conc 34.4 % (30-36); Mean Corpuscular Hemoglobin 30.0 PG (26-34); Mean Corpuscular Volume 87.2 fL (80-100); Platelet Count 258 X10^3/uL (150-400)
[2025-02-07 17:47] LABS: Alanine Aminotransferase 20 IU/L (<35); Albumin 4.4 g/dL (3.5-5.0); Albumin Globulin Ratio 1.4 (1.0-2.8); Alkaline Phosphatase 68 U/L (38-126); Blood Urea Nitrogen 11 mg/dL (7-17); Calcium 9.4 mg/dL (8.4-10.2); Carbon Dioxide 24 mmol/L (22-32); Chloride 105 mmol/L (98-107); Estimated Glomerular Filt Rate > 60 mL/min (>60); Globulin 3.1 g/dL (1.7-4.1); Glucose 88 mg/dL (70-99); HEMOLYSIS < 15 (0-50); Lipase 135 U/L (23-300); Potassium 3.6 mmol/L (3.4-5.1); Sodium 139 mmol/L (137-145); Total Protein 7.5 g/dL (6.3-8.2)
== END ==
PROVIDERS: PCP Family Medicine; Referring Provider Physician Assistant; Visit Provider Physician Assistant
DX: R10.20 Pelvic and perineal pain unspecified side (principal)
CPT/HCPCS: 36415; 80053; 83690; 85025